=== PATIENT | female | born 1945 | race Caucasian/White ===

== ENCOUNTER 2020-06-19 12:20 | Emergency (ER) | payer OTHER ==
[~2020-06-19] VITALS: Ht 157.5 cm; Wt 52.6 kg
[~2020-06-19 12:20] MED LIST: BENTYL 20MG TAB20 MG PO; ECOTRIN81 MG PO; FLEXERIL 10 MG10 MG PO; LIORESAL TAB 1010 MG PO; LISINOPRIL10 MG PO; LOVAZA1 GM PO; NEURONTIN300 MG PO; NORCO 10-325 T1 EACH PO; SYNTHROID75 MCG PO; ULTRAM50 MG PO
[2020-06-19 12:49] LABS: HEMOGLOBIN 13.3 gm/dl (12.3-15.3); RED BLOOD COUNT 4.56 M/UL (4.00-5.10)
[2020-06-19 13:22] LABS: BUN/CREATININE RATIO 17 (0-10)
[2020-06-19] MEDS ORDERED: ZYRTEC10 MG PO (15:01)
[2020-06-19] MEDS ORDERED: LIPITOR10 MG PO (15:01)
[2020-06-19] MEDS ORDERED: OMEPRAZOLE20 MG PO (15:01)
[2020-06-19] MEDS ORDERED: ULTRAM50 MG PO (15:02)
[2020-06-19] MEDS ORDERED: MULTIVITAMIN1 EACH PO (15:32)
[2020-06-19] MEDS ORDERED: MUCINEX600 MG PO (15:33)
== END 2020-06-19 20:08 | disposition home or self-care (01) ==
LOC: ER1 12:20 → CDU 14:01 → ER1 14:01
PROVIDERS: Emergency Medicine
DX: R55 Syncope and collapse (principal); I10 Essential (primary) hypertension; E07.9 Disorder of thyroid, unspecified; F32.9 Major depressive disorder, single episode, unspecified; E03.9 Hypothyroidism, unspecified; K21.9 Gastro-esophageal reflux disease without esophagitis; E78.5 Hyperlipidemia, unspecified; Z53.20 Procedure and treatment not carried out because of patient's decision for unspecified reasons; Z20.822 Contact with and (suspected) exposure to COVID-19
CPT/HCPCS: 70450; 71045; 80053; 82550; 82553; 83874; 84439; 84443; 84484; 85025; 93005; 93880; 99284; U0002

== ENCOUNTER → 2020-07-19 | Outpatient (CLI) | payer OTHER ==
[~2020-07-19] MED LIST changes: +LIPITOR10 MG PO; +MUCINEX600 MG PO; +MULTIVITAMIN1 EACH PO; +OMEPRAZOLE20 MG PO; +ZOFRAN ODT 4 MG4 MG PO; +ZYRTEC10 MG PO
== END ==
LOC: EMI 13:36
DX: F41.9 Anxiety disorder, unspecified (principal); R41.89 Other symptoms and signs involving cognitive functions and awareness; G30.0 Alzheimer's disease with early onset; R41.3 Other amnesia; R90.82 White matter disease, unspecified
CPT/HCPCS: 70551

== ENCOUNTER 2020-08-06 07:01 | Emergency (ER) | payer OTHER ==
[~2020-08-06 07:01] MED LIST changes: -ZOFRAN ODT 4 MG4 MG PO
== END 2020-08-06 09:49 | disposition left against medical advice (07) ==
LOC: ER1 07:01
DX: Z53.21 Procedure and treatment not carried out due to patient leaving prior to being seen by health care provider (principal)

== ENCOUNTER 2020-09-07 14:09 | Emergency (ER) | payer OTHER ==
[2020-09-07 15:05] LABS: HEMOGLOBIN 13.9 gm/dl (12.3-15.3); RED BLOOD COUNT 4.45 M/UL (4.00-5.10); WHITE BLOOD COUNT 5.8 K/UL (4.5-11.0)
[2020-09-07 15:26] LABS: BUN/CREATININE RATIO 16 (0-10)
[2020-09-07] MEDS ORDERED: ZOFRAN ODT 4 MG4 MG PO (16:27)
== END 2020-09-07 16:40 | disposition home or self-care (01) ==
LOC: ER1 14:09
PROVIDERS: Family Medicine
DX: R11.2 Nausea with vomiting, unspecified (principal); R19.7 Diarrhea, unspecified; R42 Dizziness and giddiness; K21.9 Gastro-esophageal reflux disease without esophagitis; I10 Essential (primary) hypertension; E78.5 Hyperlipidemia, unspecified; Z79.899 Other long term (current) drug therapy
CPT/HCPCS: 80053; 81001; 82550; 82553; 83874; 84439; 84443; 84484; 85025; 93005; 96374; 99284; J2405

== ENCOUNTER 2020-11-13 12:25 | Emergency (ER) | payer OTHER ==
[~2020-11-13 12:25] MED LIST changes: +ZOFRAN ODT 4 MG4 MG PO
== END 2020-11-13 12:49 | disposition left against medical advice (07) ==
LOC: ER1 12:25
DX: Z53.21 Procedure and treatment not carried out due to patient leaving prior to being seen by health care provider (principal)

== ENCOUNTER 2021-01-25 11:38 | Emergency (ER) | payer OTHER ==
[2021-01-25 16:35] LABS: HEMOGLOBIN 15.4 gm/dl (12.3-15.3); RED BLOOD COUNT 4.95 M/UL (4.00-5.10); WHITE BLOOD COUNT 6.1 K/UL (4.5-11.0)
[2021-01-25 16:50] LABS: BUN/CREATININE RATIO 25 (0-10)
[2021-01-25] MEDS ORDERED: IBUPROFEN800 MG PO (19:08)
[2021-01-25] MEDS ORDERED: FLAGYL500 MG PO (19:08)
[2021-01-25] MEDS ORDERED: AUGMENTIN 875-1 EACH PO (19:08)
== END 2021-01-25 19:23 | disposition home or self-care (01) ==
LOC: ER1 11:38
PROVIDERS: Emergency Medicine
DX: K52.9 Noninfective gastroenteritis and colitis, unspecified (principal); I10 Essential (primary) hypertension; Z20.822 Contact with and (suspected) exposure to COVID-19
CPT/HCPCS: 71045; 80053; 81001; 82550; 82553; 83605; 83690; 84484; 85025; 87077; 87086; 87186; 93005; 96374; 99284; J2405; J7030; Q9967; U0002

== ENCOUNTER 2021-01-30 14:24 | Emergency (ER) | payer OTHER ==
[~2021-01-30 14:24] MED LIST changes: +AUGMENTIN 875-1 EACH PO; +FLAGYL500 MG PO; +IBUPROFEN800 MG PO
[2021-01-30 18:23] LABS: HEMOGLOBIN 14.9 gm/dl (12.3-15.3); RED BLOOD COUNT 4.8 M/UL (4.00-5.10); WHITE BLOOD COUNT 8.4 K/UL (4.5-11.0)
[2021-01-30 18:48] LABS: BUN/CREATININE RATIO 20 (0-10)
== END 2021-01-30 19:25 | disposition home or self-care (01) ==
LOC: ER1 14:24
PROVIDERS: Emergency Medicine
DX: K52.9 Noninfective gastroenteritis and colitis, unspecified (principal)
CPT/HCPCS: 71045; 80053; 81001; 82550; 82553; 83874; 84484; 85025; 87040; 93005; 99285

== ENCOUNTER → 2021-05-07 | Outpatient (CLI) | payer OTHER ==
[2021-05-07 10:03] LABS: HEMOGLOBIN 12.5 gm/dl (12.3-15.3); RED BLOOD COUNT 4.23 M/UL (4.00-5.10); WHITE BLOOD COUNT 5.4 K/UL (4.5-11.0)
[2021-05-07 10:32] LABS: BUN/CREATININE RATIO 20 (0-10)
== END ==
LOC: LAB 09:19
PROVIDERS: Family Medicine
DX: R19.7 Diarrhea, unspecified (principal); I10 Essential (primary) hypertension; E03.9 Hypothyroidism, unspecified
CPT/HCPCS: 36415; 80053; 80061; 84443; 85025; 87045; 87046; 87177; 87209; 89055

== ENCOUNTER → 2021-05-15 | Outpatient (CLI) | payer OTHER | LOC: EXRD 05-13 11:30 | DX: N18.32 Chronic kidney disease, stage 3b (principal) | CPT/HCPCS: 76775 ==

== ENCOUNTER 2021-05-28 10:28 | Emergency (ER) | payer OTHER | END 2021-05-28 11:04 | disposition home or self-care (01) | LOC: ER1 10:28 | DX: S01.81XA Laceration without foreign body of other part of head, initial encounter (principal); Z23 Encounter for immunization; I48.91 Unspecified atrial fibrillation; W22.8XXA Striking against or struck by other objects, initial encounter | CPT/HCPCS: 12011; 90715; 99283 ==

== ENCOUNTER 2021-10-10 00:31 | Emergency (ER) | payer OTHER ==
[2021-10-10 02:36] LABS: HEMOGLOBIN 14.3 gm/dl (12.3-15.3); RED BLOOD COUNT 4.7 M/UL (4.00-5.10); WHITE BLOOD COUNT 7.2 K/UL (4.5-11.0)
[2021-10-10 03:10] LABS: BUN/CREATININE RATIO 26 (0-10)
== END 2021-10-10 03:45 | disposition home or self-care (01) ==
LOC: ER1 00:31
PROVIDERS: Physician Assistant
DX: E87.6 Hypokalemia (principal); R00.2 Palpitations; I10 Essential (primary) hypertension
CPT/HCPCS: 71045; 80053; 82550; 82553; 83735; 84484; 85025; 93005; 99285